=== PATIENT | female | born 1955 | race Caucasian/White ===

== ENCOUNTER 2019-10-02 14:19 | Inpatient (IN) | payer BC ==
[~2019-10-02] VITALS: Ht 167.6 cm; Wt 86.2 kg
--- NOTE | 2019-10-02 14:40 | NUR ---
ED Nurse Note: Pt walked into ED for BCIR related issues. Pt feels as if the site is becoming is odl and needs to be seen by Dr Ryder. Pt is alert and orientedx4, ambulatory. Pt colostomy BCIR on lower abdomen-site is CDI, no swelling or redness.
[2019-10-02 14:45] VITALS: BP 134/85
--- NOTE | 2019-10-02 15:00 | Emergency Room Report ---
History of Present Illness General Chief Complaint: General Complaint Source: Patient Present Illness HPI Patient is a 64-year-old female who presented after increased lower abdominal distention. She had recent noticed increased lower abdominal pain as well as bloating. Had previous history of BCIR procedure. Patient reports having continued lower abdominal pain. She is followed by Dr. Ryder. Denies any fever. Denies any vomiting. She denies taking medications regularly. Allergies: Coded Allergies: IODINE (Verified Allergy, Unknown, 10/02/19) COVID-19 Screening Contact w/high risk pt: No Recent Travel to affected area: No Experienced COVID-19 symptoms?: No Patient History Past Medical History: see triage record Now: No Reviewed Nursing Documentation: PMH: Agreed; PSxH: Agreed Nursing Documentation-PMH Past Medical History: No History, Except For Hx Hypertension: Yes Hx Diabetes: No Review of Systems All Other Systems: negative except mentioned in HPI Physical Exam Vital Signs Date Time Temp Pulse Resp B/P (MAP) Pulse Ox O2 Delivery O2 Flow Rate FiO2 10/02/19 14:22 98.1 101 19 137/87 (104) 98 Room Air Sp02 EP Interpretation: reviewed, normal General Appearance: normal inspection, well appearing, no apparent distress, alert, GCS 15 Head: atraumatic ENT: normal ENT inspection, hearing grossly normal, normal voice Neck: normal inspection, full range of motion, supple, no bony tend Respiratory: normal inspection, lungs clear, normal breath sounds, no respiratory distress, no retraction, no wheezing Cardiovascular #1: regular rate, rhythm, no edema Gastrointestinal: non tender, soft, no guarding, no hernia, other - Lower abdominal distention, ostomy in place. Genitourinary: no CVA tenderness Musculoskeletal: normal inspection, back normal, normal range of motion Neurologic: alert, motor strength/tone normal, electromedical equipment repairer III-XII nml as tested, responsive, speech normal, normal inspection Psychiatric: normal inspection, judgement/insight normal, mood/affect normal Medical Decision Making Diagnostic Impression: Primary Impression: malfunction of ostomy ER Course Patient presented for abdominal pain. Differential diagnoses included ischemic bowel, appendicitis, perforated viscus, abdominal aortic aneurysm, inferior myocardial infarction, viral gastroenteritis among others.Because patient's complexity laboratory testing ordered. Laboratory testing was unremarkable. Patient was noted to have some output in from ostomy. Dr. Ryder was contacted for inpatient management. Labs Test 10/02/19 14:55 10/02/19 16:45 10/03/19 03:50 10/03/19 05:30 Troponin I 0.000 ng/mL (0.000-0.056) Thyroid Stimulating Hormone (TSH) 2.298 uiU/mL (0.358-3.740) Urine RBC 0 /HPF (0 - 2) Urine WBC 0-2 /HPF (0 - 2) Urine Squamous Epithelial Cells Few /LPF (NONE/OCC) Urine Bacteria Occasional /HPF (NONE) White Blood Count 7.6 K/UL (4.8-10.8) Red Blood Count 4.60 M/UL (4.20-5.40) Hemoglobin 13.0 G/DL (12.0-16.0) Hematocrit 37.5 % (37.0-47.0) Mean Corpuscular Volume 81 FL (80-99) Mean Corpuscular Hemoglobin 28.3 PG (27.0-31.0) Mean Corpuscular Hemoglobin Concent 34.8 G/DL (32.0-36.0) Red Cell Distribution Width 13.2 % (11.6-14.8) Platelet Count 193 K/UL (150-450) Mean Platelet Volume 6.7 FL (6.5-10.1) Neutrophils (%) (Auto) 57.6 % (45.0-75.0) Lymphocytes (%) (Auto) 28.4 % (20.0-45.0) Monocytes (%) (Auto) 8.4 % (1.0-10.0) Eosinophils (%) (Auto) 5.0 % (0.0-3.0) Basophils (%) (Auto) 0.6 % (0.0-2.0) Prothrombin Time 10.8 SEC (9.30-11.50) Prothromb Time International Ratio 1.0 (0.9-1.1) Activated Partial Thromboplast Time 27 SEC (23-33) Sodium Level 142 MMOL/L (136-145) Potassium Level 3.9 MMOL/L (3.5-5.1) Chloride Level 108 MMOL/L (98-107) Carbon Dioxide Level 24 MMOL/L (21-32) Anion Gap 10 mmol/L (5-15) Blood Urea Nitrogen 19 mg/dL (7-18) Creatinine 1.2 MG/DL (0.55-1.30) Estimat Glomerular Filtration Rate 45.5 mL/min (>60) Glucose Level 113 MG/DL (74-106) Calcium Level 8.5 MG/DL (8.5-10.1) Iron Level 67 ug/dL (50-175) Total Iron Binding Capacity 268 ug/dL (250-450) Percent Iron Saturation 25 % (15-50) Unsaturated Iron Binding 201 ug/dL (112-346) Ferritin 38 NG/ML (8-388) Total Bilirubin 0.7 MG/DL (0.2-1.0) Aspartate Amino Transf (AST/SGOT) 13 U/L (15-37) Alanine Aminotransferase (ALT/SGPT) 21 U/L (12-78) Alkaline Phosphatase 55 U/L (46-116) Total Protein 6.1 G/DL (6.4-8.2) Albumin 2.8 G/DL (3.4-5.0) Globulin 3.3 g/dL Albumin/Globulin Ratio 0.8 (1.0-2.7) Vitamin B12 Level 322 PG/ML (193-986) Folate 19.8 NG/ML (8.6-58.9) Urine Color Pale yellow Urine Appearance Clear Urine pH 5 (4.5-8.0) Urine Specific [place] 1.010 (1.005-1.035) Urine Protein Negative (NEGATIVE) Urine Glucose (UA) Negative (NEGATIVE) Urine Ketones Negative (NEGATIVE) Urine Blood Negative (NEGATIVE) Urine Nitrite Negative (NEGATIVE) Urine Bilirubin Negative (NEGATIVE) Urine Urobilinogen Normal MG/DL (0.0-1.0) Urine Leukocyte Esterase Negative (NEGATIVE) Last Vital Signs Date Time Temp Pulse Resp B/P (MAP) Pulse Ox O2 Delivery O2 Flow Rate FiO2 10/02/19 14:22 98.1 101 19 137/87 (104) 98 Room Air Status: unchanged Disposition: ADMITTED INPATIENT Condition: Stable Romulo Bonilla MD Oct 02, 2019 15:00
[2019-10-02 15:24] LABS: BASOPHILS % (AUTO) 0.9 % (0.0-2.0); EOSINOPHILS % (AUTO) 3.4 % (0.0-3.0); HEMATOCRIT 46.4 % (37.0-47.0); HEMOGLOBIN 15.5 G/DL (12.0-16.0); LYMPHOCYTES % (AUTO) 22.3 % (20.0-45.0); MEAN CORPUSCULAR VOLUME 82 FL (80-99); MONOCYTES % (AUTO) 7.6 % (1.0-10.0); NEUTROPHILS % (AUTO) 65.9 % (45.0-75.0); PLATELET COUNT 250 K/UL (150-450); RED BLOOD COUNT 5.67 M/UL (4.20-5.40); RED CELL DISTRIBUTION WIDTH 13.2 % (11.6-14.8); WHITE BLOOD COUNT 10.3 K/UL (4.8-10.8)
[2019-10-02 15:44] LABS: ANION GAP 12 mmol/L (5-15); BLOOD UREA NITROGEN 29 mg/dL (7-18); CALCIUM 9.5 MG/DL (8.5-10.1); CARBON DIOXIDE 25 MMOL/L (21-32); CHLORIDE 105 MMOL/L (98-107); CREATININE 1.3 MG/DL (0.55-1.30); POTASSIUM 4.2 MMOL/L (3.5-5.1); SODIUM 142 MMOL/L (136-145)
[2019-10-02 15:56] LABS: ALANINE AMINOTRANSFERASE 21 U/L (12-78); ALBUMIN 3.6 G/DL (3.4-5.0); ALBUMIN/GLOBULIN RATIO 0.8 (1.0-2.7); ALKALINE PHOSPHATASE 69 U/L (46-116); ASPARTATE AMINO TRANSFERASE 19 U/L (15-37); BILIRUBIN,TOTAL 0.7 MG/DL (0.2-1.0)
[2019-10-02 16:45] VITALS: BP 139/84
--- NOTE | 2019-10-02 16:45 | NUR ---
NURSE NOTES: PATIENT ARRIVED FROM ER VIA GURNEY. AOX4. AMBULATORY. QUESTIONS ANSWERED, NEEDS MET. DISCUSSED PLAN OF CARE FOR THE DAY. PATIENT ORIENTED TO ROOM. BED IN LOW AND LOCKED POSITION.
--- NOTE | 2019-10-02 17:15 | NUR ---
NURSE NOTES: PATIENT HAS OWN ILEO CATHETER IN PLACED. CONNECTED TO EDMOND CATH DRAINAGE BAG AND SECURED IN PLACE. TOLERATED WELL. CALL LIGHT WITHIN REACH.
[2019-10-02 17:32] LABS: APPEARANCE,URINE CLEAR; BILIRUBIN, URINE NEGATIVE (NEGATIVE); COLOR,URINE PALE YELLOW; GLUCOSE, URINE (UA) NEGATIVE (NEGATIVE); KETONES,URINE NEGATIVE (NEGATIVE); LEUKOCYTE ESTERASE ,URINE NEGATIVE (NEGATIVE); NITRITE,URINE NEGATIVE (NEGATIVE); PH,URINE 5 (4.5-8.0); PROTEIN,URINE NEGATIVE (NEGATIVE); UROBILINOGEN,URINE NORMAL MG/DL (0.0-1.0)
[2019-10-02] MEDS ORDERED: BENAZEPRIL HCL10 MG ORAL (18:02)
[2019-10-02] MEDS: D5 1/2NS w/KCl 20mEq 1,000 ML IV SCH (18:47)
--- NOTE | 2019-10-02 19:10 | NUR ---
NURSE NOTES: Receive a report from ELISABET Faulkner. Round is done. Pt is awake and alert. No acute distress noted. Denies any pain. Ileostomy is located in midline and catheter inserted by pt at home. Secured with 4x4 and silk tape. Ileostomy is connected directly salinas catheter vinyl section. Greenish drainage drained natural gravity with flushing q3hr. Pt is planning to have Kock pouch endoscopy tomorrow at Noon. Permission is done during AM shift nurse and pt is aware of MNNPO. Call light within reach. Will continue to monitor.
[2019-10-02 20:00] VITALS: BP 133/91
--- NOTE | 2019-10-02 21:00 | NUR ---
NURSE NOTES: Suggest pt change catheter from Portillo, which has been inserted, to salinas catheter but pt refuses to change it. Done flushing with NS 20ml. Provide urine cup for test tomorrow. Will continue to follow up.
[2019-10-02] MEDS: LORazepam 1mg tab SL PRN (22:27)
--- NOTE | 2019-10-02 23:00 | NUR ---
NURSE NOTES: Done EKG for pre-op preparation.
[2019-10-03] VITALS (9 sets, daily range): BP systolic 123–160; BP diastolic 72–85
[2019-10-03] MEDS: D5 1/2NS w/KCl 20mEq 1,000 ML IV SCH ×3 (03:38→19:10)
[2019-10-03 04:53] LABS: ANION GAP 10 mmol/L (5-15); BLOOD UREA NITROGEN 19 mg/dL (7-18); CALCIUM 8.5 MG/DL (8.5-10.1); CARBON DIOXIDE 24 MMOL/L (21-32); CHLORIDE 108 MMOL/L (98-107); CREATININE 1.2 MG/DL (0.55-1.30); POTASSIUM 3.9 MMOL/L (3.5-5.1); SODIUM 142 MMOL/L (136-145)
[2019-10-03 04:58] LABS: ALANINE AMINOTRANSFERASE 21 U/L (12-78); ALBUMIN 2.8 G/DL (3.4-5.0); ALBUMIN/GLOBULIN RATIO 0.8 (1.0-2.7); ALKALINE PHOSPHATASE 55 U/L (46-116); ASPARTATE AMINO TRANSFERASE 13 U/L (15-37); BILIRUBIN,TOTAL 0.7 MG/DL (0.2-1.0)
[2019-10-03 05:09] LABS: BASOPHILS % (AUTO) 0.6 % (0.0-2.0); HEMATOCRIT 37.5 % (37.0-47.0); LYMPHOCYTES % (AUTO) 28.4 % (20.0-45.0); MEAN CORPUSCULAR VOLUME 81 FL (80-99); MONOCYTES % (AUTO) 8.4 % (1.0-10.0); NEUTROPHILS % (AUTO) 57.6 % (45.0-75.0); PLATELET COUNT 193 K/UL (150-450); RED CELL DISTRIBUTION WIDTH 13.2 % (11.6-14.8); WHITE BLOOD COUNT 7.6 K/UL (4.8-10.8)
[2019-10-03 05:15] LABS: FERRITIN 38 NG/ML (8-388)
[2019-10-03 05:28] LABS: % IRON SATURATION 25 % (15-50); IRON 67 ug/dL (50-175); TOTAL IRON BINDING CAPACITY 268 ug/dL (250-450)
--- NOTE | 2019-10-03 06:00 | NUR ---
NURSE NOTES: No acute distress noted. MNNPO for Kock pouch endoscopy. Done urine collection for test. Will continue to monitor. 12 hr output Urine: 1750ml Ileostomy: 145ml
[2019-10-03 07:04] LABS: APPEARANCE,URINE CLEAR; BILIRUBIN, URINE NEGATIVE (NEGATIVE); COLOR,URINE PALE YELLOW; GLUCOSE, URINE (UA) NEGATIVE (NEGATIVE); KETONES,URINE NEGATIVE (NEGATIVE); LEUKOCYTE ESTERASE ,URINE NEGATIVE (NEGATIVE); NITRITE,URINE NEGATIVE (NEGATIVE); PH,URINE 5 (4.5-8.0); PROTEIN,URINE NEGATIVE (NEGATIVE); UROBILINOGEN,URINE NORMAL MG/DL (0.0-1.0)
--- NOTE | 2019-10-03 07:45 | NUR ---
HAND-OFF: Report given to ELISABET Mansfield. Round is done.
--- NOTE | 2019-10-03 07:45 | NUR ---
NURSE NOTES: Patient is in bed awake and able to verbalize needs. Stable. Denies pain at this time. Portillo catheter noted in stoma, RN suggested changing to salinas as ordered, but patient refused.Patient instructed to use call light for assistance, verbalized understanding. Plan of care discussed with patient. Will flush pouch q3hr as ordered and monitor I&O. Patient is in bed in locked and lowest position with call light within reach. All needs met at this time. WIll continue to monitor.
--- NOTE | 2019-10-03 08:43 | General Progress Note ---
Progress Note Progress Note H&P dictated. 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 She also has incontinence through the stoma Finally able to insert 30Fr Medena catheter with pain and left it in place. Advised to come to ER and admitted with dehydration and malfunctioning Kock Pouch Abdomen soft, stoma RLQ. transverse mid-abdominal scar, mild parastomal hernia, LLQ oblique scar BUN 29 now 19 after hydration Cr 1.3 now 1.2 Albumin 2.8 Iron 67 Ferritin 38 B12 322 Folic acid ok Imp: Malfunctioning Kock Pouch continent ileostomy dehydration Plan; Kock pouch endoscopy today with MAC anesthesia Prieto Ryder MD Oct 03, 2019 08:43
[2019-10-03] MEDS: Benazepril 10mg tab ORAL SCH (08:44)
--- NOTE | 2019-10-03 08:44 | Pre-Procedure Note/Attestation ---
Pre-Procedure Note/Attestation Complete Prior to Procedure Planned Procedure: not applicable Procedure Narrative: Kock pouch endoscopy Indications for Procedure Pre-Operative Diagnosis: Malfunctioning Kock Pouch with inability to intubate and incontinence Attestation I attest that I discussed the nature of the procedure; its benefits; risks and complications; and alternatives (and the risks and benefits of such alternatives ), prior to the procedure, with the patient (or the patient's legal career representative). I attest that, if there was a reasonable possibility of needing a blood transfusion, the patient (or the patient's legal career representative) was given the [facility] standardized written summary, pursuant to the [place] Blood Safety Act ([place] Health and Safety Code # 1645, as amended). I attest that I re-evaluated the patient just prior to the surgery and that there has been no change in the patient's H&P, except as documented below: none Prieto Ryder MD Oct 03, 2019 08:44
--- NOTE | 2019-10-03 09:30 | NUR ---
NURSE NOTES: Patient refused insertion of salinas into stoma. Patient stated that she changed her mind because her abdomen feels tender and she does not want to insert anything at this time. Will continue to monitor.
[2019-10-03] MEDS ORDERED: Iron Sucrose 200 MG in NS 110 ML IV SCH (10:00)
[2019-10-03] MEDS ORDERED: Vitamin B12 1000mcg/ml Inj IM SCH (10:00)
--- NOTE | 2019-10-03 11:47 | NUR ---
NURSE NOTES: Patient taken to GI lab via gurney.
[2019-10-03] MEDS ORDERED: Propofol 200mg/20ml IV ONE ×2 (11:50)
[2019-10-03] MEDS ORDERED: Midazolam 2mg/2ml Inj ONE (11:55)
[2019-10-03] MEDS ORDERED: fentaNYL 100 mcg/2 mL IV ONE (11:55)
[2019-10-03] MEDS ORDERED: NS 500ML IVPB ONE (12:01)
--- NOTE | 2019-10-03 12:27 | Brief Operative Note ---
Immediate Post Operative Note Operative Note Pre-op Diagnosis: Malfunctioning Kock Pouch with inability to intubate and incontinence Procedure: Kock pouch endoscopy Post-op Diagnosis: Access segment angulation, partially slipped valve, intraluminal "stones" ( chronic) Post-op Diagnosis: same as pre-op Findings: consistent w/pre-op dx studies Surgeon: clau Anesthesiologist: homer Specimen: none Complications: none Condition: stable Fluids: see anesthesia record Estimated Blood Loss: none Drains: other - 28 Fr Julien to Kock pouch Implant(s) used?: No Prieto Ryder MD Oct 03, 2019 12:27
--- NOTE | 2019-10-03 12:42 | Immediate Post-Op Evaluation ---
Immediate Post-Op Evalulation Immediate Post-Op Evalulation Procedure: Pouch endoscopy Date of Evaluation: Oct 03, 2019 Time of Evaluation: 12:41 IV Fluids: 300 Blood Products: none Estimated Blood Loss: none Urinary Output: none Blood Pressure Systolic: 123 Blood Pressure Diastolic: 78 Pulse Rate: 72 Respiratory Rate: 18 O2 Sat by Pulse Oximetry: 99 Temperature (Fahrenheit): 97.6 Pain Score (1-10): 1 Nausea: No Vomiting: No Patient Status: awake, patent, none Hydration Status: adequate Mika Flores MD Oct 03, 2019 12:42
--- NOTE | 2019-10-03 12:52 | Anethesia Preoperative Eval ---
Anesthesia Pre-op PMH/ROS General Date of Evaluation: Oct 03, 2019 Time of Evaluation: 11:54 Anesthesiologist: Sandra ASA Score: ASA 2 Mallampati Score Class I : Soft palate, uvula, fauces, pillars visible Class II: Soft palate, uvula, fauces visible Class III: Soft palate, base of uvula visible Class IV: Only hard plate visible Mallampati Classification: Class II Surgeon: Aleksey Diagnosis: Malfunctioning stoma Surgical Procedure: Pouch endoscopy Anesthesia History: none Family History: no anesthesia problems Allergies: Coded Allergies: IODINE (Verified Allergy, Unknown, 10/02/19) Medications: see eMAR Patient NPO?: Yes Past Medical History Cardiovascular: Reports: HTN; Denies: CAD, GA, valve dz, arrhythmia, other Pulmonary: Denies: asthma, COPD, HERMINIA, other Gastrointestinal/Genitourinary: Reports: GERD - mild, other - h/o UC s/p total colectomy; Denies: CRI, ESRD Neurologic/Psychiatric: Reports: depression/anxiety; Denies: dementia, CVA, TIA, other Endocrine: Denies: DM, hypothyroidism, steroids, other HEENT: Denies: cataract (L), cataract (R), glaucoma, TLINGIT & HAIDA (L), TLINGIT & HAIDA (R), other Hematology/Immune: Denies: anemia, DVT, bleeding disorder, other Musculoskeletal/Integumentary: Denies: OA, RA, DJD, DDD, edema, other PMH Narrative: as above PSxH Narrative: see H&P Anesthesia Pre-op Phys. Exam Physician Exam Last Vital Signs Date Time Temp Pulse Resp B/P (MAP) Pulse Ox O2 Delivery O2 Flow Rate FiO2 10/03/19 12:45 69 12 143/73 99 Nasal Cannula 3 10/03/19 12:35 97.9 10/02/19 14:45 100 Constitutional: NAD Neurologic: CN 2-12 intact Cardiovascular: RRR, no M/R/G Respiratory: CTA Gastrointestinal: S/NT/ND Airway Exam Mallampati Score: Class II MO: full Neck: flexible ROM: full Teeth: intact Dentures: no upper, no lower Anesthesia Pre-op A/P Labs Hematology Test 10/02/19 14:55 10/03/19 03:50 White Blood Count 10.3 K/UL (4.8-10.8) 7.6 K/UL (4.8-10.8) Red Blood Count 5.67 M/UL (4.20-5.40) H 4.60 M/UL (4.20-5.40) Hemoglobin 15.5 G/DL (12.0-16.0) 13.0 G/DL (12.0-16.0) Hematocrit 46.4 % (37.0-47.0) 37.5 % (37.0-47.0) Mean Corpuscular Volume 82 FL (80-99) 81 FL (80-99) Mean Corpuscular Hemoglobin 27.4 PG (27.0-31.0) 28.3 PG (27.0-31.0) Mean Corpuscular Hemoglobin Concent 33.5 G/DL (32.0-36.0) 34.8 G/DL (32.0-36.0) Red Cell Distribution Width 13.2 % (11.6-14.8) 13.2 % (11.6-14.8) Platelet Count 250 K/UL (150-450) 193 K/UL (150-450) Mean Platelet Volume 6.6 FL (6.5-10.1) 6.7 FL (6.5-10.1) Neutrophils (%) (Auto) 65.9 % (45.0-75.0) 57.6 % (45.0-75.0) Lymphocytes (%) (Auto) 22.3 % (20.0-45.0) 28.4 % (20.0-45.0) Monocytes (%) (Auto) 7.6 % (1.0-10.0) 8.4 % (1.0-10.0) Eosinophils (%) (Auto) 3.4 % (0.0-3.0) H 5.0 % (0.0-3.0) H Basophils (%) (Auto) 0.9 % (0.0-2.0) 0.6 % (0.0-2.0) Coagulation Test 10/02/19 14:55 10/03/19 03:50 Prothrombin Time 10.2 SEC (9.30-11.50) 10.8 SEC (9.30-11.50) Prothromb Time International Ratio 1.0 (0.9-1.1) 1.0 (0.9-1.1) Activated Partial Thromboplast Time 25 SEC (23-33) 27 SEC (23-33) Chemistry Test 10/02/19 14:55 10/03/19 03:50 Sodium Level 142 MMOL/L (136-145) 142 MMOL/L (136-145) Potassium Level 4.2 MMOL/L (3.5-5.1) 3.9 MMOL/L (3.5-5.1) Chloride Level 105 MMOL/L (98-107) 108 MMOL/L (98-107) H Carbon Dioxide Level 25 MMOL/L (21-32) 24 MMOL/L (21-32) Anion Gap 12 mmol/L (5-15) 10 mmol/L (5-15) Blood Urea Nitrogen 29 mg/dL (7-18) H 19 mg/dL (7-18) H Creatinine 1.3 MG/DL (0.55-1.30) 1.2 MG/DL (0.55-1.30) Estimat Glomerular Filtration Rate 41.5 mL/min (>60) 45.5 mL/min (>60) Glucose Level 94 MG/DL (74-106) 113 MG/DL (74-106) H Calcium Level 9.5 MG/DL (8.5-10.1) 8.5 MG/DL (8.5-10.1) Total Bilirubin 0.7 MG/DL (0.2-1.0) 0.7 MG/DL (0.2-1.0) Aspartate Amino Transf (AST/SGOT) 19 U/L (15-37) 13 U/L (15-37) L Alanine Aminotransferase (ALT/SGPT) 21 U/L (12-78) 21 U/L (12-78) Alkaline Phosphatase 69 U/L (46-116) 55 U/L (46-116) Troponin I 0.000 ng/mL (0.000-0.056) Total Protein 7.9 G/DL (6.4-8.2) 6.1 G/DL (6.4-8.2) L Albumin 3.6 G/DL (3.4-5.0) 2.8 G/DL (3.4-5.0) L Globulin 4.3 g/dL 3.3 g/dL Albumin/Globulin Ratio 0.8 (1.0-2.7) L 0.8 (1.0-2.7) L Thyroid Stimulating Hormone (TSH) 2.298 uiU/mL (0.358-3.740) Iron Level 67 ug/dL (50-175) Total Iron Binding Capacity 268 ug/dL (250-450) Percent Iron Saturation 25 % (15-50) Unsaturated Iron Binding 201 ug/dL (112-346) Ferritin 38 NG/ML (8-388) Vitamin B12 Level 322 PG/ML (193-986) Folate 19.8 NG/ML (8.6-58.9) Risk Assessment & Plan Assessment: ASA 2 Plan: MAC patients request Status Change Before Surgery: Mika Malik MD Oct 03, 2019 12:52
--- NOTE | 2019-10-03 12:53 | 48 Hour Post Anesthesia Eval ---
Post Anesthesia Evaluation Procedure: Pouch endoscopy Date of Evaluation: Oct 03, 2019 Time of Evaluation: 12:52 Blood Pressure Systolic: 124 0: 72 Pulse Rate: 68 Respiratory Rate: 18 Temperature (Fahrenheit): 97.6 O2 Sat by Pulse Oximetry: 98 Airway: patent Nausea: No Vomiting: No Pain Intensity: 1 Hydration Status: adequate Cardiopulmonary Status: stable Mental Status/LOC: patient returned to baseline Follow-up Care/Observations: n/a Post-Anesthesia Complications: none Follow-up care needed: N/A Mika Flores MD Oct 03, 2019 12:53
--- NOTE | 2019-10-03 13:00 | NUR ---
NURSE NOTES: Patient arrived on unit via gurney. Assisted back to bed without incident. Julien in stoma draining to bag, will flush q3hr as ordered. All needs met at this time. Patient is in bed in locked and lowest position with call light within reach. Will continue to monitor.
--- NOTE | 2019-10-03 14:43 | NUR ---
*-* INSURANCE *-* ALL AVAILABLE CLINICALS HAVE BEEN FAXED Eli FRANCES FAX ALL CLINICALS TO [phone] Addendum: 10/04/19 at 1122 by OVIDIO CORONADO *-* INSURANCE *-* ALL UPDATED CLIMICALS HAVE BEEN FAXED TO: [facility]: JADA SUN REF# [id number] P: [phone] F: [phone]
--- NOTE | 2019-10-03 16:14 | Procedure Note ---
DATE OF PROCEDURE: 10/03/2019 ENDOSCOPY PROCEDURE REPORT ENDOSCOPIST: Prieto Ryder M.D. ANESTHESIOLOGIST: Mika Flores M.D. TYPE OF ANESTHESIA: IV sedation, MAC. PRE-ENDOSCOPY DIAGNOSES: 1. Malfunctioning Kock pouch continent ileostomy with severe difficulty intubating 2. History of ulcerative colitis. 3. Status post proctocolectomy in stages and Kock pouch 40 years ago. POST-ENDOSCOPIC DIAGNOSES: 1. Malfunctioning Kock pouch continent ileostomy with severe difficulty intubating 2. History of ulcerative colitis. 3. Status post proctocolectomy in stages and Kock pouch 40 years ago. OPERATION PERFORMED: Kock pouch endoscopy. FINDINGS: Mucosal prolapse of the stoma with a marked angulation in the subcutaneous tissues of the abdominal wall. The pouch is of good capacity and well-formed without any inflammation or ulcerations. There is evidence of a mild partial slipped valve. There are multiple stones or undigested pills within the pouch, which has been known for nearly 10 years. DESCRIPTION OF PROCEDURE: The patient was taken to the GI lab and positioned supine with sedation given by Dr. Flores. Using a GIF-P140 endoscope, the stoma was entered. I had to use digital palpation to determine where the channel was because of the mucosal prolapse of the stoma. The access segment was readily negotiated and the distance to the tip of the valve approximately 8 to 9 cm. The pouch was distensible without inflammation or ulcerations. Retroflexed views revealed a circumferentially well-formed nipple valve, but slightly shorter than usual, perhaps 3.5 to 4 cm instead of 5 cm. Withdrawal views confirmed some angulation within the valve segment with the major angulation within the abdominal wall. After removing the endoscope, I was able to manipulate a 28-Slovak Julien catheter through the superficial angulation and then directly into the pouch without difficulty. It was connected to a gravity drainage bag and secured with tape to the skin. I will discuss in detail with the patient the options of stoma revision in depth versus a complete laparotomy at this time to relieve her difficulty intubating and slight incontinence. The patient tolerated the endoscopy well. Prieto Ryder M.D. DR: KOREY JOB#: [id number] CC: [email or web address]
--- NOTE | 2019-10-03 18:59 | NUR ---
NURSE NOTES: true ileo: 185cc brown liquid output. UO: 1550cc yellow urine output. Patient ambulates independently and does not c/o pain or discomfort.
--- NOTE | 2019-10-03 19:25 | NUR ---
NURSE NOTES: Received report from Shyla BHANDARI. Rounding is done with outgoing nurse. Patient is in bed, a/o x4, and able to known her needs. Denied any pain at this time. Kock pouch is in place and drain to gravity. IV site is intact and patient and IV Fluid is running. Bed is on alarm, locked, and lowest position. Call light within reach. Will continue to monitor.
--- NOTE | 2019-10-03 19:30 | NUR ---
HAND-OFF: Report given to Alan BHANDARI. Patient is stable. Addendum: 10/03/19 at 1950 by MILAGROS GUILLEN RN Correction, Report given to Teddy BHANDARI. Patient is stable
--- NOTE | 2019-10-03 20:15 | History and Physical Report ---
DATE OF EMERGENCY ADMISSION: 10/02/2019 Admitted from emergency room 10/02/2019 at approximately 4 p.m. HISTORY OF PRESENT ILLNESS: The patient is a 64-year-old female in overall good health with a severely malfunctioning Kock pouch continent ileostomy with extreme difficulty with intubation to evacuate stool and gas. The patient has a past history of ulcerative colitis and in 1975, at age 21, developed a ruptured colon with peritonitis. She underwent abdominal colectomy with conventional Jana ileostomy. In 1976, she underwent completion proctectomy and revision of the perineum and total abdominal hysterectomy and bilateral salpingo-oophorectomy. She underwent conversion of her conventional ileostomy to a Kock pouch in 1978 in [place] and required a revision in 1985 in [place]. In recent years, the patient has had progressive difficulty inserting her intubation catheter. She uses a 30-Czech Medena catheter and she also has some incontinence of stool from the stoma. CT scan years ago revealed at least 13 stones in her pouch. It is unclear whether these are undissolved vitamin pills or something else. The patient in recent days had extreme difficulty inserting her intubation catheter and was advised to present to the emergency room and was admitted for definitive evaluation and care. Her usual routine is to intubate three to four times per day and she sleeps through the night. The difficulty she has is not very deep into the stoma then goes fully into the pouch and she continues to have some incontinence of stool and gas. She has not had any difficulty with pouchitis over the years. PAST MEDICAL HISTORY/MEDICATIONS: Lotensin for hypertension. The patient has a history of low back pain, kidney stones, gastroesophageal reflux disease with aspiration, and in the past underwent upper GI endoscopy with dilatation. ALLERGIES: Iodine. OPERATIONS: In addition to the above, she has undergone breast augmentation in 1977 and a face-lift surgery. REVIEW OF SYSTEMS: She has lost weight, almost 30 pounds, in recent years, previously 208 pounds, now 176 pounds. PHYSICAL EXAMINATION: GENERAL: The patient is well developed and well nourished, 5 feet 7 inches, 176 pounds. VITAL SIGNS: Within normal limits. HEENT: Within normal limits. LUNGS: Clear. HEART: Regular rhythm. BREASTS: Status post augmentation mammoplasty. ABDOMEN: Soft and nondistended. There is a long transverse scar just above the umbilicus. There are bilateral oblique lower quadrant scars. The stoma is in the right lower quadrant. She has a transverse suprapubic scar. In the past, she has refused to have a vertical incision to fix anything related to her pouch. There is no evidence of abdominal wall hernia, but some bulging or weakness parastomal. PELVIC: Status post hysterectomy. RECTAL: Status post proctectomy. EXTREMITIES: Without edema. NEUROLOGIC: Physiologic. IMPRESSION: 1. Malfunctioning Kock pouch continent ileostomy with severe difficulty with intubation and incontinence. 2. History of ulcerative colitis. 3. STATUS POST MULTIPLE ABDOMINAL OPERATIONS: 3.1. Abdominal colectomy and Jana ileostomy for ruptured colon with peritonitis in 1975 3.2. Completion proctectomy and total abdominal hysterectomy and bilateral salpingo-oophorectomy in 1976 3.3. Creation of a Kock pouch continent ileostomy in 1978. 3.4. Revision of Kock pouch in 1985. PLAN: The patient has a combination of severe difficulty with intubation and incontinence and also 13 retained objects in her pouch. She requires emergency admission and intravenous hydration. Her BUN is elevated at 29. Post hydration, BUN fell to 19, creatinine 1.2. Her albumin is 2.8. The patient will require continuous drainage of her pouch and NPO with correction of dehydration. She will then undergo endoscopy of her Kock pouch with plans for surgical revision based on endoscopy findings. Prieto Ryder M.D. DR: YASHIRA JOB#: [id number] CC: GAYATHRI
[2019-10-03] MEDS: LORazepam 1mg tab SL PRN (20:16)
[2019-10-04] VITALS: BP 149/76
[2019-10-04 04:00] VITALS: BP 127/77
[2019-10-04 05:40] LABS: BASOPHILS % (AUTO) 0.8 % (0.0-2.0); EOSINOPHILS % (AUTO) 5.2 % (0.0-3.0); HEMATOCRIT 38.3 % (37.0-47.0); HEMOGLOBIN 13.1 G/DL (12.0-16.0); LYMPHOCYTES % (AUTO) 24.6 % (20.0-45.0); MEAN CORPUSCULAR VOLUME 82 FL (80-99); MONOCYTES % (AUTO) 8.9 % (1.0-10.0); NEUTROPHILS % (AUTO) 60.5 % (45.0-75.0); PLATELET COUNT 190 K/UL (150-450); RED BLOOD COUNT 4.67 M/UL (4.20-5.40); RED CELL DISTRIBUTION WIDTH 13.3 % (11.6-14.8); WHITE BLOOD COUNT 6.3 K/UL (4.8-10.8)
[2019-10-04 05:47] LABS: ANION GAP 5 mmol/L (5-15); BLOOD UREA NITROGEN 13 mg/dL (7-18); CALCIUM 8.5 MG/DL (8.5-10.1); CARBON DIOXIDE 29 MMOL/L (21-32); CHLORIDE 108 MMOL/L (98-107); CREATININE 1.1 MG/DL (0.55-1.30); POTASSIUM 4.2 MMOL/L (3.5-5.1); SODIUM 142 MMOL/L (136-145)
--- NOTE | 2019-10-04 07:11 | NUR ---
HAND-OFF: Report given to Stephanie BHANDARI. Patient in stable condition.
[2019-10-04 08:00] VITALS: BP 132/82
[2019-10-04] MEDS: Benazepril 10mg tab ORAL SCH (08:48)
[2019-10-04] MEDS ORDERED: Iron Sucrose 200 MG in NS 110 ML IV ONE (10:30)
--- NOTE | 2019-10-04 11:31 | Anethesia Preoperative Eval ---
Anesthesia Pre-op PMH/ROS General Date of Evaluation: Oct 04, 2019 Time of Evaluation: 11:27 Anesthesiologist: Sandra ASA Score: ASA 2 Mallampati Score Class I : Soft palate, uvula, fauces, pillars visible Class II: Soft palate, uvula, fauces visible Class III: Soft palate, base of uvula visible Class IV: Only hard plate visible Mallampati Classification: Class II Surgeon: Aleksey Diagnosis: Malfunctioning continernt pouch Surgical Procedure: Revision on continent stoma Anesthesia History: none Family History: no anesthesia problems Allergies: Coded Allergies: IODINE (Verified Allergy, Unknown, 10/02/19) Medications: see eMAR Patient NPO?: Yes Past Medical History Cardiovascular: Reports: HTN; Denies: CAD, FL, valve dz, arrhythmia, other Pulmonary: Denies: asthma, COPD, HERMINIA, other Gastrointestinal/Genitourinary: Reports: GERD, other - h/o UC s/p total colectomy; Denies: CRI, ESRD Neurologic/Psychiatric: Reports: depression/anxiety; Denies: dementia, CVA, TIA, other Endocrine: Denies: DM, hypothyroidism, steroids, other HEENT: Denies: cataract (L), cataract (R), glaucoma, NEZ PERCE (L), NEZ PERCE (R), other Hematology/Immune: Denies: anemia, DVT, bleeding disorder, other Musculoskeletal/Integumentary: Denies: OA, RA, DJD, DDD, edema, other PMH Narrative: as above PSxH Narrative: see chart Anesthesia Pre-op Phys. Exam Physician Exam Last Vital Signs Date Time Temp Pulse Resp B/P (MAP) Pulse Ox O2 Delivery O2 Flow Rate FiO2 10/04/19 09:09 Room Air 10/04/19 08:48 132/82 10/04/19 08:00 97.5 68 21 98 10/03/19 12:45 3 10/02/19 14:45 100 Constitutional: NAD Neurologic: CN 2-12 intact Cardiovascular: RRR, no M/R/G Respiratory: CTA Gastrointestinal: S/NT/ND Airway Exam Mallampati Score: Class II MO: full Neck: flexible ROM: full Teeth: intact Dentures: no upper, no lower Anesthesia Pre-op A/P Labs Hematology Test 10/04/19 04:45 White Blood Count 6.3 K/UL (4.8-10.8) Red Blood Count 4.67 M/UL (4.20-5.40) Hemoglobin 13.1 G/DL (12.0-16.0) Hematocrit 38.3 % (37.0-47.0) Mean Corpuscular Volume 82 FL (80-99) Mean Corpuscular Hemoglobin 28.0 PG (27.0-31.0) Mean Corpuscular Hemoglobin Concent 34.2 G/DL (32.0-36.0) Red Cell Distribution Width 13.3 % (11.6-14.8) Platelet Count 190 K/UL (150-450) Mean Platelet Volume 7.1 FL (6.5-10.1) Neutrophils (%) (Auto) 60.5 % (45.0-75.0) Lymphocytes (%) (Auto) 24.6 % (20.0-45.0) Monocytes (%) (Auto) 8.9 % (1.0-10.0) Eosinophils (%) (Auto) 5.2 % (0.0-3.0) H Basophils (%) (Auto) 0.8 % (0.0-2.0) Chemistry Test 10/04/19 04:45 Sodium Level 142 MMOL/L (136-145) Potassium Level 4.2 MMOL/L (3.5-5.1) Chloride Level 108 MMOL/L (98-107) H Carbon Dioxide Level 29 MMOL/L (21-32) Anion Gap 5 mmol/L (5-15) Blood Urea Nitrogen 13 mg/dL (7-18) Creatinine 1.1 MG/DL (0.55-1.30) Estimat Glomerular Filtration Rate 50.3 mL/min (>60) Glucose Level 97 MG/DL (74-106) Calcium Level 8.5 MG/DL (8.5-10.1) Risk Assessment & Plan Assessment: ASA 2 Plan: GA with Mika Witt MD Oct 04, 2019 11:31
[2019-10-04] MEDS: Neomycin Sulfate 500mg Tab ORAL SCH ×3 (11:51→20:24)
[2019-10-04 12:00] VITALS: BP 133/74
--- NOTE | 2019-10-04 13:55 | NUR ---
*-* INSURANCE *-* ALL UPDATED CLINICALS HAVE BEEN FAXED TO: [facility]: JADA SUN REF# [id number] P: [phone] F: [phone]
--- NOTE | 2019-10-04 13:59 | NUR ---
CASE MANAGEMENT: INITIAL REVIEW 64YR OLD FEMALE FROM HOME CC: ABD DISTENTION WITH PAIN; BLOATING HX ulcerative colitis. SI:MALFUNCTIONING LOCK POUCH CONTINENT ILEOSTOMY 98.1 101 19 137/87 98% ON RA RBC 5.67 BUN 29 IS:ATIVAN Q4HR/PRN \: 3E MED SURG UNIT DCP: HOME WHEN STABLE PLAN: POUCH ENDOSCOPY IN AM CASE MANAGEMENT: REVIEW 10/03/19 SI:S/P POUCH ENDOSCOPY MALFUNCTIONING LOCK POUCH CONTINENT ILEOSTOMY 98.1 101 19 137/87 98% ON RA CL-108 BUN 19 BG 113 IS:IV D5@50ML/HR LOTENSIN PO QD ATIVAN Q4HR/PRN \: 3E MED SURG UNIT DCP: HOME WHEN STABLE PLAN: POUCH ENDOSCOPY IN AM CASE MANAGEMENT: REVIEW 10/04/19 SI:S/P POUCH ENDOSCOPY MALFUNCTIONING LOCK POUCH CONTINENT ILEOSTOMY 98.1 101 19 137/87 98% ON RA CL-108 IS:IV D5@50ML/HR NEOMYCIN SULFATE PO TID ERYTHROMYCIN PO TID LOTENSIN PO QD ATIVAN Q4HR/PRN \: 3E MED SURG UNIT DCP: HOME WHEN STABLE PLAN: SURGERY IN AM - REVISION ON CONTINENT STOMA NPO @[place]
--- NOTE | 2019-10-04 14:03 | General Progress Note ---
Progress Note Progress Note AVSS Doing well with indwelling Kock pouch catheter to drainage. Abdomen soft, non-distended Labs stable/satisfactory except albumin 2.8 and low normal iron and ferritin and B12 Imp: Malfunctioning Kock pouch with inability to intubate Plan: Revision of Kock Pouch stoma in depth in AM Bowel prep with IV hydration Continuous drainage of Kock pouch Full discussion with patient regarding her condition, nature of the surgery, indications, alternatives and risks (bleeding, infection, persistent or worsening difficulties with Kock pouch that could lead to the need for laparotomy and a major revision), etc. I discussed that in 1-2 months she can return for repeat endoscopy with larger endoscope to remove intra-luminal foreign bodies (present for many years without any pouch ulcerations, etc). All questions answered - she understands and agrees to proceed. Prieto Ryder MD Oct 04, 2019 14:03
--- NOTE | 2019-10-04 14:42 | NUR ---
*-* INSURANCE *-* ALL UPDATED REVIEWS HAVE BEEN FAXED TO: [facility]: JADA SUN REF# [id number] P: [phone] F: [phone]
[2019-10-04] MEDS: D5 1/2NS w/KCl 20mEq 1,000 ML IV SCH (15:09)
[2019-10-04 16:00] VITALS: BP 145/83
--- NOTE | 2019-10-04 18:56 | NUR ---
NURSE NOTES: AWAKE/ALERT. IN NO DISTRESS. NPO P MN . FOR SURGERY IN AM.
--- NOTE | 2019-10-04 19:19 | NUR ---
HAND-OFF: Report given to Steven PARRA RN.
[2019-10-04 20:00] VITALS: BP 144/94
--- NOTE | 2019-10-04 20:03 | NUR ---
NURSES NOTE: Met pt in bed, A/OX4, able to express needs. Pt denies pain currently. No outward s/s of distress noted. Ileo intact, patent, to be flushed q3h. L hand IV, in place, infusing IVF according to eMAR. Pt to be NPO at midnight for procedure at 0800. Pt aware. All due meds will be given. Bed at lowest level. Call light within reach. Pt will continue to be monitored.
[2019-10-04] MEDS: LORazepam 1mg tab SL PRN (20:28)
[2019-10-05] VITALS (17 sets, daily range): BP systolic 110–179; BP diastolic 66–95
[2019-10-05] MEDS: Ampicillin/Sulbactam Sod 3 GM in NS 110 ML IV SCH ×4 (00:02→17:18)
[2019-10-05] MEDS: D5 1/2NS w/KCl 20mEq 1,000 ML IV SCH (04:28)
[2019-10-05] MEDS: Benazepril 10mg tab ORAL SCH (06:22)
[2019-10-05] MEDS ORDERED: fentaNYL 100 mcg/2 mL IV ONE (07:19)
[2019-10-05] MEDS ORDERED: Midazolam 2mg/2ml Inj ONE (07:20)
[2019-10-05] MEDS ORDERED: Lidocaine 1% MPF 10mg/ml 5ml ONE (07:21)
[2019-10-05] MEDS ORDERED: Propofol 200mg/20ml IV ONE (07:21)
--- NOTE | 2019-10-05 07:25 | NUR ---
NURSE NOTES: AWAKEALERT. NO C/O PAIN. NPO MAINTAINED FOR SURGERY. TO OR VIA BED.
[2019-10-05] MEDS ORDERED: Bacitracin 50000 Units Vial ONE (07:28)
[2019-10-05] MEDS ORDERED: Dyna-Hex 2% Top Sol 2oz TOPIC ONE (07:28)
[2019-10-05] MEDS ORDERED: NeoSporin Gu Irrig 1ml Amp IRRIG ONE (07:28)
[2019-10-05] MEDS ORDERED: Rocuronium Bromide 50mg/5ml Inj IV ONE (07:33)
--- NOTE | 2019-10-05 07:46 | NUR ---
HAND OFF: Report given to, ELISABET Brown. Pt stable. Prepared for AM surgery.
--- NOTE | 2019-10-05 07:49 | Pre-Procedure Note/Attestation ---
Pre-Procedure Note/Attestation Complete Prior to Procedure Planned Procedure: not applicable Procedure Narrative: revision of Kock Pouch stoma in depth Indications for Procedure Pre-Operative Diagnosis: Malfunctioning Kock Pouch Attestation I attest that I discussed the nature of the procedure; its benefits; risks and complications; and alternatives (and the risks and benefits of such alternatives ), prior to the procedure, with the patient (or the patient's legal sales representative jewelry). I attest that, if there was a reasonable possibility of needing a blood transfusion, the patient (or the patient's legal sales representative jewelry) was given the [facility] standardized written summary, pursuant to the Kurt [place] Blood Safety Act ([place] Health and Safety Code # 1645, as amended). I attest that I re-evaluated the patient just prior to the surgery and that there has been no change in the patient's H&P, except as documented below: none Prieto Ryder MD Oct 05, 2019 07:49
[2019-10-05] MEDS ORDERED: NS Irrig 1000ml IRRIG ONE ×2 (07:56→08:14)
[2019-10-05] MEDS ORDERED: Sterile Water Irrig 1000ml IRRIG ONE (08:00)
[2019-10-05] MEDS ORDERED: NS Irrig 1000ml ONE (08:00)
[2019-10-05] MEDS ORDERED: LR 1000ml ONE (08:00)
[2019-10-05] MEDS ORDERED: LR 1000ml 1,000 ML IVLG SCH (08:36)
[2019-10-05] MEDS ORDERED: Hydromorphone 0.5mg/0.5ml inj IVP PRN (08:45)
[2019-10-05] MEDS ORDERED: DiphenhydrAMINE 50mg/ml Inj IVP PRN (08:45)
[2019-10-05] MEDS ORDERED: Ketorolac 30mg Inj IV PRN (08:45)
--- NOTE | 2019-10-05 09:26 | Brief Operative Note ---
Immediate Post Operative Note Operative Note Pre-op Diagnosis: Malfunctioning Kock Pouch Procedure: revision of Kock pouch stoma in depth Post-op Diagnosis: Malfunctioning Kock Pouch Post-op Diagnosis: same as pre-op Findings: consistent w/pre-op dx studies Surgeon: clau Additional Surgeons: rebecca Anesthesia: general Specimen: yes - Kock pouch stoma Complications: none Condition: stable Fluids: see anesthesia record Estimated Blood Loss: minimal Drains: other - 28 Julien to Kock Pouch Implant(s) used?: No Prieto Ryder MD Oct 05, 2019 09:26
[2019-10-05] MEDS ORDERED: LORazepam 1mg tab SL PRN (09:30)
[2019-10-05] MEDS ORDERED: HYDROcodone/Acetamin 5/325 tab ORAL PRN (09:30)
--- NOTE | 2019-10-05 09:31 | Immediate Post-Op Evaluation ---
Immediate Post-Op Evalulation Immediate Post-Op Evalulation Procedure: Revision of pouch stoma Date of Evaluation: Oct 05, 2019 Time of Evaluation: 09:30 IV Fluids: 500 Blood Products: none Estimated Blood Loss: min Urinary Output: none Blood Pressure Systolic: 146 Blood Pressure Diastolic: 82 Pulse Rate: 68 Respiratory Rate: 20 O2 Sat by Pulse Oximetry: 99 Temperature (Fahrenheit): 97.6 Pain Score (1-10): 1 Nausea: No Vomiting: No Complications none Patient Status: reacts, patent, none Hydration Status: adequate Mika Flores MD Oct 05, 2019 09:31
--- NOTE | 2019-10-05 10:31 | NUR ---
NURSE NOTES: REC'D FROM PACU SP REVISION OF CONTINENT GUADARRAMA POUCH STOMA. DROWSY BUT AROUSABLE. IVF INFUSING. V/S TAKEN. NO CO PAIN. ILEOSTOMY IN PLACE DRAINING GREENISH OUTPUT. IN NO DISTRESS. WILL MONITOR PT.
[2019-10-05] MEDS ORDERED: D5 1/4NS w/KCl 20mEq 1,000 ML IV SCH (11:00)
[2019-10-05] MEDS ORDERED: Ampicillin/Sulbactam Sod 3 GM in NS 110 ML IV SCH (12:00)
--- NOTE | 2019-10-05 12:29 | NUR ---
CASE MANAGEMENT: REVIEW 10/05/19 SI:S/P POUCH ENDOSCOPY MALFUNCTIONING LOCK POUCH CONTINENT ILEOSTOMY 97.6 81 18 140/85 97% ON RA IS:IN SURGERY NOW REVISION OF KOCK POUCH STOMA IV D5@100ML/HR IV AMPICILLIN Q6HR IV FLAGYL Q6HR LOTENSIN PO QD ATIVAN Q4HR/PRN \: 3E MED SURG UNIT DCP: HOME WHEN STABLE PLAN: SURGERY - REVISION ON CONTINENT STOMA
--- NOTE | 2019-10-05 14:35 | NUR ---
*-* INSURANCE *-* ALL UPDATED REVIEWS HAVE BEEN FAXED TO: [facility]: JADA SUN REF# [id number] P: [phone] F: [phone]
--- NOTE | 2019-10-05 16:30 | Operative Note - Dictated ---
DATE OF OPERATION: 10/05/2019 SURGEON: Prieto Ryder M.D. ADDITIONAL SURGEON: Dung Stevenson M.D. ANESTHESIOLOGIST: Mika Flores M.D. TYPE OF ANESTHESIA: General. PREOPERATIVE DIAGNOSES: 1. 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 2. History of ulcerative colitis. 3. STATUS POST MULTIPLE ABDOMINAL OPERATIONS: 3.1. Abdominal colectomy and Jana ileostomy for ruptured colon with peritonitis in 1975. 3.2. Completion proctectomy with total abdominal hysterectomy and bilateral salpingo-oophorectomy in 1976. 3.3. Creation of a Kock pouch continent ileostomy in 1978. 3.4. Revision of Kock pouch in 1985. POSTOPERATIVE DIAGNOSES: 1. 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 2. History of ulcerative colitis. 3. STATUS POST MULTIPLE ABDOMINAL OPERATIONS: 3.1. Abdominal colectomy and Jana ileostomy for ruptured colon with peritonitis in 1975. 3.2. Completion proctectomy with total abdominal hysterectomy and bilateral salpingo-oophorectomy in 1976. 3.3. Creation of a Kock pouch continent ileostomy in 1978. 3.4. Revision of Kock pouch in 1985. OPERATION PERFORMED: Complex Revision of Kock pouch stoma in depth. PROCEDURE: The patient was taken to the operating room and under general anesthesia with sequential compression device stockings in place and having received intravenous antibiotics, she was prepped and draped in the usual fashion. The stoma with mucosal prolapse and a stricture within the midportion of the access segment was approached with a circular peristomal incision, then with gradual circumferential dissection, the stoma and access segment was elevated down below the rectus fascia liberating 5 cm of redundant tissue. The mesentery was divided between clamps, ligating with 2-0 Vicryl. The field was irrigated with antibiotic solution. The medial and lateral incision was narrowed with 4-0 Monocryl subcuticular suture and then the redundant stoma with its stricture within the access segment was excised and the new stoma primarily matured with continuous 2-0 chromic locking sutures starting at the 3 and 9 o'clock positions. A 28-Ghanaian Julien catheter was used during the procedure and went in completely readily without any limitation compared to preoperatively. The 28-Ghanaian Julien catheter was positioned in the pouch and confirmed with irrigation, sutured to the skin with a 2-0 silk, flushed and connected to a gravity drainage bag. Dry sterile dressings were applied. Final sponge and needle counts were correct. The patient tolerated the procedure well and left the operating room in good condition. Prieto Ryder M.D. DR: COBY JOB#: [id number] CC: GAYATHRI
--- NOTE | 2019-10-05 18:00 | NUR ---
NURSE NOTES: TOLERATED CLEAR LIQUIDS. NO NAUSEA/VOMITING. IVF DC'D ORDERED.
--- NOTE | 2019-10-05 18:30 | NUR ---
NURSE NOTES: ASSISTED OOB, AMBULATED OUT INTHE LARSEN TOLERATED.
--- NOTE | 2019-10-05 19:30 | NUR ---
NURSE NOTES: RECEIVED PATIENT FROM ELISABET FONTAINE. PATIENT IS AWAKE, AAOX4, ON ROOM AIR, NO ACUTE DISTRESS NOTED. I/S AT BEDSIDE. SCDS ON. OSTOMY DRESSING INTACT AND DRY, DRAINING WELL, GRAVITY TO DRAIN. DENIES PAIN AT THE MOMENT. BED IS LOCKED AND LOW, BED ALARMS ACTIVE, SIDE RAILS UP X2 AND CALL LIGHT IS WITHIN REACH. WILL CONTINUE TO MONITOR.
[2019-10-05] MEDS: Iron Sucrose 100 MG in NS 55 ML IV SCH (20:30)
[2019-10-05] MEDS: HYDROmorphone 1mg/ml Carpuject SUBQ PRN (20:44)
[2019-10-05] MEDS: LORazepam 1mg tab SL PRN (20:58)
[2019-10-06] VITALS: BP 149/82
[2019-10-06] MEDS: Ampicillin/Sulbactam Sod 3 GM in NS 110 ML IV SCH ×4 (00:13→18:41)
[2019-10-06] MEDS: HYDROmorphone 1mg/ml Carpuject SUBQ PRN (01:04)
[2019-10-06 04:00] VITALS: BP 142/87
[2019-10-06 06:43] LABS: BASOPHILS % (AUTO) 0.5 % (0.0-2.0); EOSINOPHILS % (AUTO) 2.3 % (0.0-3.0); HEMATOCRIT 40.6 % (37.0-47.0); HEMOGLOBIN 13.9 G/DL (12.0-16.0); LYMPHOCYTES % (AUTO) 15.2 % (20.0-45.0); MEAN CORPUSCULAR VOLUME 81 FL (80-99); MONOCYTES % (AUTO) 9.1 % (1.0-10.0); NEUTROPHILS % (AUTO) 72.9 % (45.0-75.0); PLATELET COUNT 187 K/UL (150-450); RED BLOOD COUNT 4.99 M/UL (4.20-5.40); RED CELL DISTRIBUTION WIDTH 12.9 % (11.6-14.8); WHITE BLOOD COUNT 8.8 K/UL (4.8-10.8)
[2019-10-06 07:10] LABS: ANION GAP 8 mmol/L (5-15); BLOOD UREA NITROGEN 5 mg/dL (7-18); CALCIUM 8.8 MG/DL (8.5-10.1); CARBON DIOXIDE 29 MMOL/L (21-32); CHLORIDE 105 MMOL/L (98-107); POTASSIUM 3.1 MMOL/L (3.5-5.1); SODIUM 142 MMOL/L (136-145)
--- NOTE | 2019-10-06 07:25 | NUR ---
NURSE NOTES: Report received from Anna RN, rounds made. Patient sleeping, arousable, but drowsy. Respirations even, unlabored on RA, no distress. BCIR draining brown/green output. Abdominal dressing CDI. RW heplock intact. Denies pain, SOB, NV. Call light in reach, bed in lowest position, will continue to monitor.
--- NOTE | 2019-10-06 07:42 | NUR ---
HAND-OFF: Report given to ELISABET Soliz.
[2019-10-06 08:00] VITALS: BP 144/83
--- NOTE | 2019-10-06 09:15 | General Progress Note ---
Progress Note Progress Note AVSS Required dilaudid SQ x 1 overnight. Now comfortable Abdomen soft, stoma pink with minimal edema Urine 3800 Kock pouch ileo 295 K 3.1 BUN 5 Cr 1.0 Imp: Stable Plan: BCIR diet d/c IV fluids continue IV antibiotics maintain indwelling Kock pouch catheter to continuous drainage KCL po Prieto Ryder MD Oct 06, 2019 09:15
[2019-10-06] MEDS: Benazepril 10mg tab ORAL SCH (09:32)
--- NOTE | 2019-10-06 09:56 | 48 Hour Post Anesthesia Eval ---
Post Anesthesia Evaluation Procedure: Revision of pouch stoma Date of Evaluation: Oct 06, 2019 Time of Evaluation: 09:54 Blood Pressure Systolic: 144 0: 83 Pulse Rate: 81 Respiratory Rate: 17 Temperature (Fahrenheit): 99.3 O2 Sat by Pulse Oximetry: 98 Airway: patent Nausea: No Vomiting: No Pain Intensity: 2 Hydration Status: adequate Cardiopulmonary Status: Stable Mental Status/LOC: patient returned to baseline Follow-up Care/Observations: 0 Post-Anesthesia Complications: 0 Follow-up care needed: N/A Cooper Arreola MD Oct 06, 2019 09:56
--- NOTE | 2019-10-06 11:16 | NUR ---
CASE MANAGEMENT: REVIEW 10/06/19 SI:S/P REVISION OF KOCK POUCH STOMA S/P POUCH ENDOSCOPY MALFUNCTIONING LOCK POUCH CONTINENT ILEOSTOMY 99.3 81 17 144/83 98% ON RA K+ 3.1 BUN 5 IS:IV D5@100ML/HR IV AMPICILLIN Q6HR IV FLAGYL Q6HR LOTENSIN PO QD ATIVAN Q4HR/PRN DILAUDID SQ Q4HR/PRN K-DUR PO QD IV VENOFER QHS X 5 BAGS \: 3E MED SURG UNIT DCP: HOME WHEN STABLE PLAN: DC SCD'S PATIENT AMBULATE TID
--- NOTE | 2019-10-06 11:30 | NUR ---
NURSE NOTES: Encouraged IS, patient performs correctly, inspires 1000 ml, needs reinforcement. Instructed patient to ambulate in halls TID, verbalized understanding. Will continue to monitor.
[2019-10-06 12:00] VITALS: BP 138/85
--- NOTE | 2019-10-06 14:21 | NUR ---
*-* INSURANCE *-* ALL UPDATED REVIEWS HAVE BEEN FAXED TO: [facility]: JADA SUN REF# [id number] P: [phone] F: [phone]
[2019-10-06] MEDS ORDERED: NS Irrig 1000ml ONE (14:22)
[2019-10-06 16:00] VITALS: BP 135/79
--- NOTE | 2019-10-06 18:30 | NUR ---
NURSE NOTES: Patient ambulated in halls twice this shift, gait steady and fast.
--- NOTE | 2019-10-06 19:52 | NUR ---
NURSE NOTES: Patient ambulating in hallway, steady gait. No distress noted.
--- NOTE | 2019-10-06 19:58 | NUR ---
HAND-OFF: Report given to Zully BHANDARI, rounds made. Outputs: Urine: 1125 ml BCIR: 370 ml
[2019-10-06 20:00] VITALS: BP 145/84
--- NOTE | 2019-10-06 20:05 | NUR ---
NURSE NOTES: Received report from ELISABET Soliz. Rounds done. Patient is in bed now, no distress noted, ambulated without difficulty around nurses' station several times. No complaints at this time.
[2019-10-06] MEDS: Ascorbic Acid 500mg tab ORAL PRN (20:28)
[2019-10-06] MEDS: Iron Sucrose 100 MG in NS 55 ML IV SCH (20:29)
[2019-10-06] MEDS: LORazepam 1mg tab SL PRN (21:08)
[2019-10-07] VITALS: BP 137/83
[2019-10-07] MEDS: Ampicillin/Sulbactam Sod 3 GM in NS 110 ML IV SCH ×5 (00:06→23:23)
[2019-10-07 04:00] VITALS: BP 133/76
[2019-10-07 07:07] LABS: ANION GAP 8 mmol/L (5-15); BLOOD UREA NITROGEN 12 mg/dL (7-18); CALCIUM 8.6 MG/DL (8.5-10.1); CARBON DIOXIDE 26 MMOL/L (21-32); CHLORIDE 107 MMOL/L (98-107); POTASSIUM 3.8 MMOL/L (3.5-5.1); SODIUM 141 MMOL/L (136-145)
--- NOTE | 2019-10-07 07:12 | NUR ---
NURSE NOTES: Report received from Zully BHANDARI, rounds made. Patient resting in semi-fowlers position in bed. AOx4, calm. No distress on RA. Denies pain, SOB, NV. C/O right wrist IV site tenderness, mild redness noted to small area of right forearm near IV insertion site. IV heplocked, provided warm compresses for right and left forearm (previous IV site, raised area, mild pink/tenderness noted). Patient does not want to be restarted at this time. BCIR draining brown output to gravity, dressing CDI. Call light in reach, bed in lowest position, will continue to monitor.
--- NOTE | 2019-10-07 07:15 | NUR ---
HAND-OFF: Report given to ELISABET Soliz. Condition stable.
[2019-10-07 07:28] LABS: BASOPHILS % (AUTO) 0.6 % (0.0-2.0); EOSINOPHILS % (AUTO) 4.3 % (0.0-3.0); HEMATOCRIT 38.3 % (37.0-47.0); HEMOGLOBIN 13.1 G/DL (12.0-16.0); LYMPHOCYTES % (AUTO) 22.7 % (20.0-45.0); MEAN CORPUSCULAR VOLUME 82 FL (80-99); MONOCYTES % (AUTO) 8.7 % (1.0-10.0); NEUTROPHILS % (AUTO) 63.7 % (45.0-75.0); PLATELET COUNT 153 K/UL (150-450); RED BLOOD COUNT 4.69 M/UL (4.20-5.40); RED CELL DISTRIBUTION WIDTH 12.9 % (11.6-14.8)
[2019-10-07 08:00] VITALS: BP 127/76
[2019-10-07] MEDS: Benazepril 10mg tab ORAL SCH (09:00)
[2019-10-07] MEDS: Ascorbic Acid 500mg tab ORAL PRN ×2 (09:09→18:36)
--- NOTE | 2019-10-07 10:35 | General Progress Note ---
Progress Note Progress Note AVSS Peristomal skin is erythematous and moderate circumferential soft tissue swelling. Stoma pink and healing Urine 1575 Kock pouch ileo 515 tolerating BCIR diet Imp: Peristomal inflammation s/p revision of Kock pouch stoma Plan; continue IV antibiotics continue indwelling kock pouch catheter to continuous drainage Prieto Ryder MD Oct 07, 2019 10:34
[2019-10-07 12:00] VITALS: BP 125/79
--- NOTE | 2019-10-07 12:45 | NUR ---
NURSE NOTES: Patient requested to be weighed, on stand up scale: 178.6 lbs. RW IV remains tender, provided warm compress. IV antibiotics to run slower (Unasyn/Flagyl over 1 hour), as ordered by Dr. Ryder. Patient requested to keep TKO rate running, even after IV antibiotics are complete, to keep the line open, due to pain with flushing prior to starting IV antibiotics. Will continue to monitor.
--- NOTE | 2019-10-07 13:44 | NUR ---
*-* INSURANCE *-* ALL UPDATED REVIEWS HAVE BEEN FAXED TO: [facility]: JADA SUN REF# [id number] P: [phone] F: [phone]
--- NOTE | 2019-10-07 13:52 | NUR ---
CASE MANAGEMENT:REVIEW 10/07/19 SI: POD #3 S/P KOCK POUCH REVISION 98.9 83 16 125/79 97% ON RA IS: IV AMPICILLIN Q6HRS IV FLAGYL Q6HRS IV VENOFER QHS K-DUR PO BID LOTENSIN PO QD DILAUDID SQ Q4HRS PRN : MED/SURG STATUS 3 EAST DCP: FROM HOME PLAN: CONTINUE IV ANTIBIOTICS CONTINUE KOCK POUCH CATHETER TO CONTINUOUS DRAINAGE
[2019-10-07 16:00] VITALS: BP 146/96
--- NOTE | 2019-10-07 17:00 | NUR ---
NURSE NOTES: Patient up ambulated in halls twice this shift, encouraged IS.
--- NOTE | 2019-10-07 18:00 | NUR ---
NURSE NOTES: Right wrist IV site appears a little puffy/pink at insertion site. Patient states "it feels fine and it has always looked this way" Advised it may be best to change the IV site, patient declined. Will continue to assess for changes.
--- NOTE | 2019-10-07 19:36 | NUR ---
HAND-OFF: Report given to Teddy BHANDARI, rounds made. Outputs: Urine: 1575 ml BCIR: 745 ml
--- NOTE | 2019-10-07 19:38 | NUR ---
NURSE NOTES: Received report from Heydi BHANDARI. Rounding is done. Patient is in bed, a/ox4, and able to known her needs. Denied any distress or pain at this time. Breathing is even and unlabored on room air. IV site is swollen and redness noted. Asked to patient to change IV site, but patient refused and also Heydi stated Dr. olguin already aware. Dressing is c/d/i. Ileo cath is in place and drain to gravity. Bed is on alarm, locked, and lowest position. Call light within reach. Will continue to monitor.
[2019-10-07 20:00] VITALS: BP 131/79
[2019-10-07] MEDS: Iron Sucrose 100 MG in NS 55 ML IV SCH (22:12)
[2019-10-07] MEDS: LORazepam 1mg tab SL PRN (22:13)
[2019-10-08] VITALS: BP 142/86
[2019-10-08 04:00] VITALS: BP 129/76
[2019-10-08] MEDS: Ampicillin/Sulbactam Sod 3 GM in NS 110 ML IV SCH ×3 (05:02→18:27)
--- NOTE | 2019-10-08 07:41 | NUR ---
HAND-OFF: Report given to Stephanie BHANDARI. Patient in stable condition.
--- NOTE | 2019-10-08 07:42 | NUR ---
NURSE NOTES: ASLEEP. NO C/O PAIN. IN NO DISTRESS.
[2019-10-08] MEDS: Benazepril 10mg tab ORAL SCH (08:48)
[2019-10-08 08:59] VITALS: BP 126/83
[2019-10-08] MEDS ORDERED: LORazepam 1mg tab SL PRN (09:28)
[2019-10-08] MEDS ORDERED: NS Irrig 1000ml ONE ×2 (09:33→10:16)
[2019-10-08] MEDS ORDERED: Tubing IV Secondary IV ONE (09:33)
--- NOTE | 2019-10-08 09:44 | General Progress Note ---
Progress Note Progress Note AVSS Feeling well. tolerating 50% BCIR diet Peristomal erythema is much improved with resolving soft tissue swelling. Stoma pink and healing nicely Imp: Peristomal cellulitis improved on IV antibiotics Plan: Continue IV antibiotics, Venofer Maintain indwelling Kock pouch catheter to drainage additional 24 hours Prieto Ryder MD Oct 08, 2019 09:44
[2019-10-08] MEDS ORDERED: NS 275ml ONE ×2 (10:15→10:16)
[2019-10-08 12:00] VITALS: BP 123/83
--- NOTE | 2019-10-08 15:08 | NUR ---
NURSE NOTES: ambulated out in the [place] tolerated.
[2019-10-08 16:00] VITALS: BP 122/79
--- NOTE | 2019-10-08 18:58 | NUR ---
NURSE NOTES: AWAKE/ALERT. CONDITION STABLE. IN NO DITRESS.
--- NOTE | 2019-10-08 19:11 | NUR ---
HAND-OFF: Report given to RASHID Hernandez RN.
--- NOTE | 2019-10-08 19:15 | NUR ---
NURSE NOTES: Received report from ELISABET Brown. Pt is awake, lying semi-low's; comfortably resting. No signs of acute distress noted. Pt denies any pain at this time. AOx4; able to make needs known. Checked IV site; patent and flushed. No erythema, bleeding, or infiltration noted. Dressing dry and intact. Ileo noted; patent and draining. Bed at lowest position. Brakes on. Siderails up x2. Call light within reach. Will continue to monitor.
[2019-10-08 20:00] VITALS: BP 152/93
[2019-10-08] MEDS: Iron Sucrose 100 MG in NS 55 ML IV SCH (20:16)
--- NOTE | 2019-10-08 20:39 | NUR ---
NURSE NOTES: Dr. Ryder made aware that the pt is refusing any IV medications for tonight as pt's IV is infiltrated and "do not want any more IVs". table operator made aware. Awaiting callback for new orders.
[2019-10-08] MEDS ORDERED: Augmentin 875mg Tab ORAL ONE (21:00)
[2019-10-08] MEDS: Augmentin 875mg Tab ORAL SCH (22:12)
[2019-10-09] VITALS: BP 157/94
[2019-10-09] MEDS: LORazepam 1mg tab SL PRN (00:14)
[2019-10-09 04:00] VITALS: BP 141/85
--- NOTE | 2019-10-09 07:20 | NUR ---
HAND-OFF: Report given to ELISABET Mckeon. Pt is awake and in stable condition. Plan of care endorsed.
[2019-10-09 08:00] VITALS: BP 149/94
--- NOTE | 2019-10-09 08:05 | NUR ---
NURSE NOTES: Received report from Elida RN, pt a/a/ ox 4 laying in bed with no signs of distress or other issues at this time. no IV access per report Dr. Ryder is aware and ok with it. ileostomy draining to gravity. total night manager out put: 620ml, total urine: 2250ml. call light within reach, bed in lowest position. side rales up. I will f/u as needed - per report supplies for home were given.
[2019-10-09] MEDS: Augmentin 875mg Tab ORAL SCH (08:43)
[2019-10-09] MEDS: Ascorbic Acid 500mg tab ORAL PRN (08:43)
[2019-10-09] MEDS: Benazepril 10mg tab ORAL SCH (08:43)
--- NOTE | 2019-10-09 09:07 | General Progress Note ---
Progress Note Progress Note Doing well and mild peristomal swelling, stoma healing nicely. Has received Venofer 400mg IV during her stay + 5 day IV antibiotics (Augmentin last day as IV infiltrates) Kock pouch catheter removed - reinserts readily I&O satisf Imp. doing well Plan: RN supervised Kock pouch self-intubations x 2 then discharge Rx - none Full instructions/limitations/supplies discussed/provided F/U 10/11 office - intubate Kock pouch as needed Prieto Ryder MD Oct 09, 2019 09:07
[2019-10-09 12:00] VITALS: BP 141/92
--- NOTE | 2019-10-09 14:25 | NUR ---
NURSE NOTES: Received order to d/c. Discharge instructions and belongings list given to patient. Also given supplies as indicated by MD. pt left the floor with no signs of distress or other issues a this time. pt's will provide transportation.
--- NOTE | 2019-10-10 13:41 | NUR ---
*-* INSURANCE *-* ALL UPDATED REVIEWS HAVE BEEN FAXED TO: [facility]: JADA SUN REF# [id number] P: [phone] F: [phone] Addendum: 10/10/19 at 1343 by OVIDIO CORONADO CM DISCHARGE SUMMARY HAS BEEN FAXED
--- NOTE | 2019-10-10 18:59 | Discharge Summary ---
Discharge Summary Hospital Course Date of Admission Oct 02, 2019 at 16:16 Date of Discharge Oct 09, 2019 at 14:05 Admitting Diagnosis Malfunctioning Kock pouch continent ileostomy Reason for Hospitalization: Elective surgery HPI 64-year-old female in overall good health with a severely malfunctioning Kock pouch continent ileostomy with extreme difficulty with intubation to evacuate stool and gas. The patient has a past history of ulcerative colitis and in 1975, at age 21, developed a ruptured colon with peritonitis. She underwent abdominal colectomy with conventional Jana ileostomy. In 1976, she underwent completion proctectomy and revision of the perineum and total abdominal hysterectomy and bilateral salpingo-oophorectomy. She underwent conversion of her conventional ileostomy to a Kock pouch in 1978 in [place] and required a revision in 1985 in [place]. In recent years, the patient has had progressive difficulty inserting of intubation catheter. She uses a 30-Anguillan Medena catheter and she also has incontinence. CT scan years ago revealed multiple stones, at least 13 stones, in her pouch. It is unclear whether these are undissolved vitamin pills or something else. The patient in recent days had extreme difficulty inserting her intubation catheter and was advised to present to the emergency room and was admitted for definitive evaluation and care. Her usual routine is to intubate three to four times per day and she sleeps through the night. The difficulty she has is very deep into the stoma almost fully into the pouch and she continues to have some incontinence of stool and gas. She has not had any difficulty with Procedures s/p 10/[address] Aleksey Brewster pouch endoscopy s/p 10/04/ by Dr Ryder Revision of Kock pouch stoma in-depth. Hospital Course patient admitted for malfunctioning Kock pouch continent ileostomy patient undergone on 10/02 Kock pouch endoscopy. it revealed : -mucosal prolapse of the stoma with a marked angulation in the subcutaneous tissue of the abdominal wall. -the pouch was of good capacity and well formed without any inflammation or ulceration -there was evidence of a mild partial slipped valve. -there were multiple stones of digested pills within the pouch, which had been known for nearly 10 years indwelling Kock pouch catheter was placed to drainage patient tolerated endoscopy well the option of stoma revision versus complete laparotomy were discussed with the patient , including her condition ,nature of surgery, indications, alternatives and risks in 1 to 2 months she can return for repeat endoscopy with larger endoscope to remove intraluminal foreign bodies, present for many years without any pouch ulceration patient consented to proceed with surgery prior to surgery patient received bowel preparation and started on IV fluids patient subsequently undergone on 10/04 revision of Kock pouch stoma in depth. patient tolerated procedure well postoperatively pain management was addressed patient was on IV fluids and IV antibiotics labs and intake and output were closely monitored potassium was replaced indwelling Kockk pouch catheter was kept to continuous drainage patient started on BCIR diet and tolerated it well stomal skin noted to be erythematous with moderate circumferential soft tissue swelling stoma appeared pink and healing IV antibiotics continued patient was on Venofer patient was able to tolerate BCIR diet peristomal erythema subsequently improved with resolving soft tissue swelling stoma remained pink and was healing nicely Kock pouch subsequently was removed and reinserted easily intake and output remained satisfactory patient started on RN supervised Kock pouch self intubation, which she performed without difficulties patient completed 5 days of antibiotics Venofer patient was ready for discharge full instruction/limitations/supplies discussed/provided patient to follow-up in the office on 10/11 FINAL DIAGNOSES 1. 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 2. History of ulcerative colitis. 3. STATUS POST MULTIPLE ABDOMINAL OPERATIONS: 3.1. Abdominal colectomy and Jana ileostomy for ruptured colon with peritonitis in 1975. 3.2. Completion proctectomy with total abdominal hysterectomy and bilateral salpingo-oophorectomy in 1976. 3.3. Creation of a Kock pouch continent ileostomy in 1978. 3.4. Revision of Kock pouch in 1985. 4. s/p Kock pouch endoscopy 5. s/p Revision of Kock pouch stoma in-depth 6. Peristomal cellulitis-resolved Discharge Condition Upon Discharge: stable Discharge Vital Signs Last Vital Signs Date Time Temp Pulse Resp B/P (MAP) Pulse Ox O2 Delivery O2 Flow Rate FiO2 10/09/19 12:00 98.9 89 18 141/92 (108) 96 10/09/19 09:00 Room Air 10/05/19 10:37 2.0 10/02/19 14:45 100 Discharge Disposition Patient was discharged home Discharge Instructions Discharge Instructions Special Instructions I have been assigned to complete a D/C Summary on this account. I was not involved in the patient management Farrah Davis CONFERENCE SERVICES DIRECTOR Oct 10, 2019 18:59
== END 2019-10-09 14:05 | disposition home or self-care (01) | DRG 330 ==
LOC: EMR 14:50 → EDBEDREQ 16:08 → 3E 16:16
PROC: 0DJD8ZZ Inspection of Lower Intestinal Tract, Via Natural or Artificial Opening Endoscopic (ICD-10-PCS; principal; 2019-10-03 12:08)
PROC: 0DBB0ZZ Excision of Ileum, Open Approach (ICD-10-PCS; 2019-10-05)
DX: K94.13 Enterostomy malfunction (principal); L03.311 Cellulitis of abdominal wall; E86.0 Dehydration; I10 Essential (primary) hypertension; R15.9 Full incontinence of feces
CPT/HCPCS: 36415; 80048; 80053; 81001; 81003; 82607; 82728; 82746; 83540; 83550; 84443; 84484; 85025; 85610; 85730; 86850; 86900; 86901; 93005; 94003; 94150; 99285; J2250; J8499